=== PATIENT | male | born 1955 | race Caucasian/White ===

== ENCOUNTER 2022-05-24 08:57 | Emergency (ER) | payer MEDICARE, SELFPAY ==
--- NOTE | ~2022-05-24 | XR_ITS ---
EXAMINATION: XR shoulder RT min 2V DATE: 05/24/2022 09:17 INDICATION: Right shoulder pain post fall TECHNIQUE: AP internally and externally rotated, AP oblique externally rotated and transscapular Y vi ews of the right shoulder were obtained. COMPARISON: None FINDINGS: Normal alignment. No fracture.Mild glenohumeral osteoarthritis with cephalad predominant mild nonuni form joint space narrowing. Moderate acromioclavicular osteoarthritis. Mild upper thoracic levocurvat ure. Partially visualized severe lower cervical spondylosis. Visualized portion of the right lung are clear. Soft tissues are unremarkable. IMPRESSION: Mild right glenohumeral and moderate acromioclavicular osteoarthritis. No acute osseous abnormality. Reviewed, dictated and finalized at location A.
[2022-05-24 09:00] VITALS: BP 157/95; PULSE 95; RESP 18; TEMP 36.5; O2SAT 96
--- NOTE | 2022-05-24 09:45 | ED.FALL ---
HPI - Fall General Chief Complaint: Fall Stated Complaint: fall/right shoulder pain Time Seen by Provider: 05/24/22 09:00 History of Present Illness HPI Narrative: 66-year-old male presented the emergency room for evaluation of right shoulder pain following a mechanical fall from a standing position. Patient says yesterday he was at the doctor's office with his toe got caught under a piece of carpet that was elevated, this caused him to fall landing on his right shoulder. Patient unable to verbalize the exact mechanism of injury. Reports injury occurred yesterday. Denies any other injuries. States has limited range of motion and has noticed a decreased amount of strength. Took Tylenol 1 g with moderate relief of symptoms. No history of right shoulder injury. Related Data Home Medications Medication Instructions Recorded Confirmed amlodipine 10 mg tablet 10 mg PO DAILY 01/14/21 Allergies Allergy/AdvReac Type Severity Reaction Status Date / Time Penicillins Allergy Unknown Unknown Verified 05/24/22 09:04 Review of Systems Review of Systems: CONSTITUTIONAL: Denies fever, chills, or sweats. EYES: Denies visual changes, redness, or discharge. ENT: Denies rhinorrhea, congestion, sore throat, or otalgia. CARDIOVASCULAR: Denies chest pain, palpitations, or edema. RESPIRATORY: Denies cough or dyspnea. GASTROINTESTINAL: Denies abdominal pain, nausea, vomiting, or diarrhea. GENITOURINARY: Denies dysuria or hematuria. SKIN: Denies rash or itching. MUSCULOSKELETAL: Reports right shoulder pain NEUROLOGIC: Denies headache, numbness, dizziness, or weakness. PSYCHIATRIC: Denies anxiety or depression. PMFSH Family History Family History Other Hypertension Social History Social History Smoking status: Never smoker Alcohol intake: never Exam Narrative: GENERAL: Well-appearing, well-nourished, no physical limitations, and in no acute distress. HEAD: Normocephalic, atraumatic. EYES: Conjunctivae normal, PERRLA and EOMI. CHEST: Clear to auscultation. No respiratory distress. No wheezes rales or rhonchi. No tenderness. HEART: Regular rate and rhythm. No murmur heard. Normal peripheral pulses. BACK: No cervical/thoracic/lumbar tenderness, step-offs, bony abnormality; FROM EXTREMITIES: Right shoulder: Tenderness over the proximal humerus, no bony abnormality, no ecchymosis or soft tissue swelling noted. Active range of motion limited in flexion abduction and abduction, positive drop can test SKIN: Warm, dry, no rash. No noted wounds NEURO: No focal deficits. Alert and oriented x3. MAEW. CN's II-XI intact bilaterally, normal gait PSYCH: Cooperative. Normal mood and affect. Course Vital Signs Vital signs: Vital Signs Temperature 36.5 C 05/24/22 09:00 Pulse Rate 95 05/24/22 09:00 Respiratory Rate 18 05/24/22 09:00 Blood Pressure 157/95 H 05/24/22 09:00 Pulse Oximetry 96 05/24/22 09:00 Oxygen Delivery Room Air 05/24/22 09:00 Temperature 36.5 C 05/24/22 09:00 Pulse Rate 95 05/24/22 09:00 Respiratory Rate 18 05/24/22 09:00 Blood Pressure 157/95 H 05/24/22 09:00 Pulse Oximetry 96 05/24/22 09:00 Oxygen Delivery Room Air 05/24/22 09:00 Discharge Plan Discharge Clinical Impression: Acute pain of right shoulder Patient Disposition: Home, Self-Care Condition: Stable Additional Instructions: Wear sling for comfort. Follow-up with Dr. Bang today for evaluation in his office on or Monday. Prescriptions: New naproxen 500 mg tablet 500 mg PO BID Qty: 20 0RF No Action amlodipine 10 mg tablet 10 mg PO DAILY Follow-up/Referrals: [facility] [Primary Care Provider] - Jasson Hernandez MD [Physician] - Time of Disposition: 09:47
== END 2022-05-24 10:12 | disposition home or self-care (01) ==
PROVIDERS: Emergency Provider Nurse Practitioner Family
DX: M25.511 Pain in right shoulder (principal); I10 Essential (primary) hypertension
CPT/HCPCS: 73030; 99283; A4565

== ENCOUNTER 2022-10-20 14:41 | Emergency (ER) | payer MEDICARE, SELFPAY ==
[2022-10-20 14:45] VITALS: BP 169/88; PULSE 99; RESP 20; TEMP 36.6; O2SAT 96
--- NOTE | 2022-10-20 14:52 | ED.EAR ---
HPI - Ear Problem General Chief complaint: Ear Stated complaint: Left Ear Irritation Time Seen by Provider: 10/20/22 14:55 Source: patient Mode of arrival: ambulatory Limitations: no limitations History of Present Illness HPI Narrative: 67 y/o male presented for c/o ear fullness, states it sounds muffled like he is under water. Reports concern for ear wax. Patient follows with ENT Dr Delgado, was seen yesterday in office for cerumen impaction. Reported fullness sensation had resolved when hair/cerumen removed per notes. Patient states it worsened today. Denies tinnitus, dizziness, nausea, vomiting or sinus congestion. MD Complaint: ear pain Related Data Home Medications Medication Instructions Recorded Confirmed amlodipine 10 mg tablet 10 mg PO DAILY 01/14/21 10/20/22 Allergies Allergy/AdvReac Type Severity Reaction Status Date / Time Penicillins Allergy Unknown Unknown Verified 10/19/22 12:50 Review of Systems Review of Systems: CONSTITUTIONAL: Denies malaise, chills, or fever. EYES: Denies visual changes, redness, or discharge. ENT: Denies rhinorrhea, congestion, sinus pain, and sore throat. Reports ear pain CARDIOVASCULAR: Denies chest pain, palpitations, or edema. RESPIRATORY: Denies cough or dyspnea. GASTROINTESTINAL: Denies abdominal pain, nausea, vomiting, diarrhea SKIN: Denies rash or itching. MUSCULOSKELETAL: Denies myalgia. NEUROLOGIC: Denies headache. All systems reviewed & are unremarkable except as noted in HPI and below PMFSH Past Medical History Medical History HTN (hypertension) Family History Family History Other Hypertension Social History Social History Smoking status: Never smoker Alcohol intake: never Substance use: never Lack of Transportation: No Lack of Food: Never True Current Housing: I Have Housing Concerned About Future Housing: No Difficulty Paying Gas/Electric Bills: No Difficulty Paying for Meds: No Currently Unemployed: No Education: High School Diploma/GED Difficulty w/ Childcare or Family Care: No Gender identity (if verbalized by the patient): Male Comments At time of signature, agree with nursing past medical, surgical, social and family history. There is no relevant family history pertinent to the presenting complaint Exam Narrative: GENERAL: Well-appearing EYES: PERRLA, conjunctivae clear ENT: Nares clear. Mucous membranes moist. Sinus congestion. Right TM pearly [place] with normal light reflex; Left canal red with mild yellow drainage; dull TM with effusion; no tragal tenderness. Oropharynx not erythematous without lesions. CHEST: Clear to auscultation, breath sounds equal. No wheezing, rhonchi, rales, or stridor. No respiratory distress, speaks in full sentences. HEART: Regular rate and rhythm. No murmur heard. SKIN: Warm, dry, no rash. NEURO: Alert and oriented x3. PSYCH: Normal mood and affect Course Course Emergency Course: Patient is aware of diagnosis, understands and agrees to treatment plan. Anticipatory guidance given. Patient agrees to follow-up as directed and is aware of reasons to seek care at the emergency department. Portions of this record may have been created with voice recognition software Level of Care: Express Care Visit Vital Signs Vital signs: Vital Signs Temperature 97.9 F 10/20/22 14:45 Pulse Rate 99 10/20/22 14:45 Respiratory Rate 20 10/20/22 14:45 Blood Pressure 169/88 H 10/20/22 14:45 Pulse Oximetry 96 10/20/22 14:45 Oxygen Delivery Room Air 10/20/22 14:45 Temperature 97.9 F 10/20/22 14:45 Pulse Rate 99 10/20/22 14:45 Respiratory Rate 20 10/20/22 14:45 Blood Pressure 169/88 H 10/20/22 14:45 Pulse Oximetry 96 10/20/22 14:45 Oxygen Delivery Room Air 10/20/22 14:45 Reviewed Medical [facility]
== END 2022-10-20 15:18 | disposition home or self-care (01) ==
PROVIDERS: Emergency Provider Nurse Practitioner Family
DX: H60.502 Unspecified acute noninfective otitis externa, left ear (principal); H65.02 Acute serous otitis media, left ear; I10 Essential (primary) hypertension
CPT/HCPCS: 99213; A9270; G0463